=== PATIENT | female | born 1960 | race Caucasian/White ===

== ENCOUNTER → 2020-09-02 16:08 | Outpatient (CLI) | payer OTHER, SELFPAY ==
--- NOTE | ~2020-09-02 | MM_ITS ---
EXAMINATION: MM screening lucinda BI w aram HISTORY: Screening mammogram TECHNIQUE: Craniocaudal and mediolateral oblique 3-D tomosynthesis images were obtained and synthetic 2-D images were generated. CAD analysis was submitted and interpreted. COMPARISON: 06/23/2019 diagnostic right digital mammogram 06/13/2019, 05/10/2018, 05/26/2016 bilateral digital screening mammogram examinations BREAST PARENCHYMAL COMPOSITION: There are scattered areas of fibroglandular density. FINDINGS: There is no evidence of suspicious mass, calcification, or architectural distortion to sugg est malignancy in either breast. There has been no suspicious interval change. IMPRESSION: 1. No mammographic evidence of malignancy. 2. Recommend routine screening mammography in one year. BI-RADS Category 1: Negative Reviewed, dictated and finalized at location A. [facility]
== END ==
PROVIDERS: PCP Nurse Practitioner Family
DX: Z12.31 Encounter for screening mammogram for malignant neoplasm of breast (principal)
CPT/HCPCS: 77063; 77067